=== PATIENT | male | born 1975 | race Caucasian/White ===

== ENCOUNTER 2017-05-01 11:40 | Emergency (ER) | payer OTHER ==
[2017-05-01 11:53] VITALS: BP 124/77; PULSE 98; BMI 26.5
--- NOTE | 2017-05-01 13:14 | PDOC ---
History of Present Illness - General Chief Complaint: Respiratory Stated Complaint: COUGH Time Seen by Provider: 05/01/17 11:58 History Source: Patient Exam Limitations: No Limitations - History of Present Illness Initial Comments: 05/01/17 13:09 42-year-old male presents to the ED with complaints of continual nasal congestion, sore throat and cough despite taking Tessalon and Flonase is prescribed by urgent care clinic 2 days ago. Patient denies fever and denies frontal headache. Patient denies visual changes, neck pain, difficulty breathing , or fever presently. Patient denies smoking history and states his work consists of a lot of dust despite wearing his mask he frequently has nasal and sinus symptoms. Timing/Duration: reports: other Severity: reports: moderate Possible Cause: Yes: occasional episodes Modifying Factors: improves with: coughing Associated Symptoms: reports: cough, nasal congestion, sore throat Past History - Travel Traveled outside of the country in the last 30 days: No - Past Medical History Allergies/Adverse Reactions: Allergies Allergy/AdvReac Type Severity Reaction Status Date / Time Penicillins Allergy Verified 05/01/17 11:53 Home Medications: Ambulatory Orders NK [No Known Home Medication] 05/01/17 COPD: No - Suicide/Smoking/Psychosocial Hx Smoking History: Never smoked Patient Lives Alone: No Lives with/in: spouse/SO Respiratory Specific PMHX - Complaint Specific PMHX Bronchitis: No Review of Systems - Review of Systems Able to Perform ROS?: Yes Constitutional: No: Symptoms Reported HEENTM: Yes: Nose Congestion, Throat Pain Respiratory: Yes: Cough Cardiac (ROS): No: Symptoms Reported ABD/GI: No: Symptoms Reported : No: Symptoms Reported Musculoskeletal: No: Symptoms Reported Integumentary: No: Symptoms Reported Neurological: No: Symptoms reported *Physical Exam - Vital Signs Last Vital Signs Temp Pulse Resp BP Pulse Ox 98 H 18 124/77 99 05/01/17 11:43 05/01/17 11:43 05/01/17 11:43 05/01/17 11:43 - Physical Exam General Appearance: Yes: Nourished, Appropriately Dressed. No: Apparent Distress HEENT: positive: EOMI, YVONNE, TMs Normal, Pharyngeal Erythema, Nasal Congestion, Rhinorrhea (clear bilateral), Sinus Tenderness. negative: Tonsillar Exudate, Tonsillar Erythema Neck: positive: Supple Respiratory/Chest: positive: Lungs Clear, Normal Breath Sounds. negative: Respiratory Distress, Accessory Muscle Use Cardiovascular: positive: Regular Rhythm, Regular Rate. negative: Murmur Gastrointestinal/Abdominal: positive: Soft. negative: Tenderness Musculoskeletal: negative: Normal Inspection Extremity: positive: Normal Capillary Refill. negative: Pedal Edema Integumentary: positive: Normal Color, Warm, Moist Neurologic: positive: Motor Strength 5/5 (ambulatory) ED Treatment Course - ADDITIONAL ORDERS Additional order review: 05/01/17 12:20 Group A Strep Rapid Antigen - Final Throat Medical Decision Making - Medical Decision Making 05/01/17 13:16 Patient here with complaints of nasal congestion, sinus pressure, sore throat and cough despite medication( Flonase and Tessalon pearls). Patient with erythema to the pharyngeal region. Patient ordered for rapid strep and will discharge home with Robitussin with codeine, azithromycin. *DC/Admit/Observation/Transfer Diagnosis at time of Disposition: Nasal congestion - Discharge Dispostion Disposition: HOME Condition at time of disposition: Good - Referrals - Patient Instructions Printed Discharge Instructions: DI for Cough -- Adult Additional Instructions: Please take medication as prescribed until completed. May take Motrin Tylenol for any discomfort. - Post Discharge Activity
== END 2017-05-01 13:43 | disposition home or self-care (01) ==
LOC: JERFT 11:40
DX: R09.81 Nasal congestion (principal)
CPT/HCPCS: 87070; 87430; 99281-25